=== PATIENT | female | born 1965 | race Caucasian/White ===

== ENCOUNTER 2016-12-28 11:17 | Inpatient (IN) | payer OTHER ==
[~2016-12-28] VITALS: Ht 162.6 cm; Wt 90.7 kg
--- NOTE | ~2016-12-28 | PN ---
Unit #: [id number] #: [id number] Patient: DASHAWN URIAS [id number] [facility] [address] [place] [address] [id number] MR#: [id number] NAME: DASHAWN URIAS ROOM: [facility] Age: 51 Sex: F Admission Date: 12/28/2016 : 1965 Attending Physician: Pardeep Adler M.D. Admitting Physician: Pardeep Adler M.D. Primary Care Physician: Primary Care Physician Lauren WOOD PROGRESS NOTES DATE 12/30/2016 DISCUSSION The patient is active within the therapeutic milieu and reports some reduction in her depression. Her detox is going smoothly and she might be ready for discharge this weekend. She states that she will be able to arrange transportation home to [place] on her own. Dictated by... Pardeep Adler M.D. CB/carito TD: 12/30/2016 15:51 JOB #: [id number] NINA PROGRESS NOTES Page 1 of 1 X Pardeep Adler MD PROGRESS NOTE
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
--- NOTE | ~2016-12-28 | DS ---
Unit #: [id number] #: [id number] Patient: DASHAWN URIAS [id number] [facility] [address] [place] [address] [id number] I MR#: [id number] NAME: DASHAWN URIAS ROOM: [facility] Age: 51 Sex: F Admission Date: 12/28/2016 : 1965 Discharge Date: Attending Physician: Pardeep Adler M.D. Primary Care Physician: Primary Care Physician No DISCHARGE SUMMARY REASON FOR ADMISSION The patient is a 51-year-old white female, admitted for alcohol detox. HOSPITAL COURSE The patient was admitted to the [facility] unit and placed on suicide precautions. She was continued on home medications including Desyrel, Claritin, Vistaril, Proventil, Motrin, and Zanaflex. Her stay in the hospital was a brief and uneventful one. Her detox went smoothly and on 12/31/2016, she requested discharge with followup take place through the auspices of [facility] mental health resources in [facility]. Discharge was ordered. FINAL DIAGNOSES Alcohol use disorder; environmental allergies. DISPOSITION ON DISCHARGE The patient is discharged on no psychotropic medications. She will continue on previously prescribed medications including Claritin 10 mg once daily for GERD, Desyrel 100 mg at h.s. for insomnia, Vistaril 25 mg q.6 hours p.r.n. anxiety, Proventil HFA 2 puffs q.4 hours p.r.n. shortness of air, Motrin 600 mg t.i.d. daily p.r.n. pain, and Zanaflex 4 mg b.i.d. for muscle relaxation. DISCHARGE INSTRUCTIONS No dietary or physical restrictions were placed on the patient at the time of discharge. FOLLOWUP Followup will take place through the auspices of [facility] mental health resources in the [facility]. PROGNOSIS The patient's prognosis is considered fair. ADDENDUM This physician had mistakenly stated that the patient is discharged on no psychotropic medications. She is in fact discharged on p.r.n. Desyrel and Vistaril, but no antidepressant or other such scheduled medication is ordered. Dictated by... Pardeep Adler M.D. Unit #: [id number] #: [id number] Patient: DASHAWN URIAS CB/modl TD: 12/31/2016 12:37 JOB #: [id number] DISCHARGE SUMMARY Page 1 of 1 X Pardeep Adler MD DISCHARGE SUMMARY
== END 2016-12-31 16:45 | disposition home or self-care (01) | DRG 897 ==
LOC: P1E 16:19
PROC: HZ2ZZZZ Detoxification Services for Substance Abuse Treatment (ICD-10-PCS; principal; 2016-12-29)
DX: F10.10 Alcohol abuse, uncomplicated (principal); F33.1 Major depressive disorder, recurrent, moderate; F17.210 Nicotine dependence, cigarettes, uncomplicated; E66.9 Obesity, unspecified; J30.2 Other seasonal allergic rhinitis; Z68.34 Body mass index [BMI] 34.0-34.9, adult
CPT/HCPCS: 82947; 86592